=== PATIENT | female | born 1985 | race Caucasian/White ===

== ENCOUNTER 2023-10-21 18:37 | Inpatient (IN) | payer MEDICAID ==
[~2023-10-21] VITALS: Ht 162.6 cm; Wt 69.9 kg
[2023-10-21 18:57] VITALS: BP_SYST 138; PULSE 129; RESP 16; TEMP 98; O2SAT 100
[2023-10-21] MEDS: NACL 0.9% 1,000 ML IV ONE ×2 (18:57→20:30)
[2023-10-21] MEDS: LORazepam 2 MG/ML VIAL IVP ONE ×2 (18:57→20:36)
[2023-10-21] MEDS: ONDANSETRON HCL 4 MG/2 ML VIAL IVP ONE ×2 (18:58→20:19)
[2023-10-21] MEDS: levETIRAcetam 1,000 MG in NS 90 ML IV ONE (19:20)
[2023-10-21 19:32] LABS: BASOPHILS # (AUTO) 0.1 K/uL (0.0-0.2); EOSINOPHILS # (AUTO) 0.1 K/uL (0.0-0.4); EOSINOPHILS % (AUTO) 1.1 % (0.0-4.0); HEMATOCRIT 34.8 % (36-48); HEMOGLOBIN 11.9 g/dL (12.0-16.0); LYMPHOCYTES # (AUTO) 2.8 K/uL (1.0-5.5); LYMPHOCYTES % (AUTO) 28.5 % (20.5-51.5); MEAN CORPUSCULAR HEMOGLOBIN 31 pg (27-31); MEAN CORPUSCULAR HGB CONC 34 % (32-36); MEAN CORPUSCULAR VOLUME 90 fL (79.0-98.0); MONOCYTES # (AUTO) 0.9 K/uL (0.0-1.0); MONOCYTES % (AUTO) 9.7 % (1.7-9.3); NEUTROPHILS # (AUTO) 5.8 K/uL (1.8-7.7); NEUTROPHILS % (AUTO) 59.7 % (40.0-70.0); PLATELET COUNT (AUTO) 283 K/uL (130-430); RED BLOOD CELL COUNT(AUTO) 3.88 MIL/uL (4.2-6.2); RED CELL DISTRIBUTION WIDTH 13.7 % (9.0-15.0); WHITE BLOOD COUNT (AUTO) 9.7 K/uL (4.8-10.8)
[2023-10-21 19:56] LABS: ANION GAP 11 (5-15); CALCIUM 8.1 mg/dL (8.4-11.0); CARBON DIOXIDE 23 mmol/L (23-29); CHLORIDE 96 mmol/L (98-107); CREATININE 0.66 mg/dL (0.55-1.30); GFR AFRICAN AMERICAN 130 mL/min (>90); GLUCOSE 88 mg/dL (74-106); SODIUM SERUM 130 mmol/L (136-145); UREA NITROGEN, BLOOD 6 mg/dL (8-21)
[2023-10-21 19:59] LABS: GFR NON AFRICAN-AMERICAN 108 mL/min (>90)
[2023-10-21 20:00] LABS: POTASSIUM 2.8 mmol/L (3.5-5.1)
[2023-10-21] MEDS ORDERED: KCL 40 mEq in 100 mL (PREMIX) 100 ML IV ONE (20:00)
[2023-10-21] MEDS ORDERED: ONDANSETRON HCL 4 MG/2 ML VIAL ONE (20:11)
[2023-10-21] MEDS ORDERED: KCL 20 mEq in 100 mL (PREMIX) 200 ML IV ONE (20:20)
[2023-10-21] MEDS: KETOROLAC TROMETHAMINE 30 MG VIAL IVP ONE (20:35)
[2023-10-21] MEDS: KCL 20 mEq in 100 mL (PREMIX) 100 ML IV ONE ×2 (20:35→20:36)
[2023-10-21] MEDS: MORPHINE 2 MG/ML INJ. SYRINGE IVP ONE (21:00)
[2023-10-21 21:31] LABS: BILIRUBIN,URINE NEGATIVE (NEGATIVE); BLOOD, URINE NEGATIVE (NEGATIVE); CLARITY/URINE CLEAR (CLEAR); COLOR,URINE YELLOW (YELLOW); GLUCOSE,URINE NEGATIVE (NEGATIVE); KETONES,URINE NEGATIVE (NEGATIVE); LEUKOCYTE ESTERASE ,URINE NEGATIVE (NEGATIVE); NITRITE, URINE NEGATIVE (NEGATIVE); PROTEIN URINE NEGATIVE (NEGATIVE); UROBILINOGEN,URINE 0.2 (0.2-1.0)
[2023-10-21] MEDS ORDERED: ACETAMINOPHEN 325 MG TABLET PO PRN (21:45)
[2023-10-21] MEDS ORDERED: LORazepam 2 MG/ML VIAL IVP PRN (21:45)
[2023-10-21 21:59] LABS: INFLUENZA TYPE A Negative (NEGATIVE); INFLUENZA TYPE B NEGATIVE (NEGATIVE)
[2023-10-21] MEDS ORDERED: GALC120P SQ (22:26)
[2023-10-21] MEDS ORDERED: FOLI-43 PO (22:26)
[2023-10-21] MEDS ORDERED: [UNRECOGNIZED DRUG - CODE] PO (22:26)
[2023-10-21] MEDS ORDERED: [UNRECOGNIZED DRUG - CODE] PO (22:26)
[2023-10-21] MEDS ORDERED: METF-379 PO (22:26)
[2023-10-21] MEDS ORDERED: ARA20 PO (22:26)
[2023-10-21] MEDS ORDERED: FERR236T3 PO (22:26)
[2023-10-21] MEDS ORDERED: ESCI10TA PO (22:26)
[2023-10-21] MEDS: D5/0.45 NS 1,000 ML IV SCH (22:35)
[2023-10-21] MEDS: POTASSIUM CHLORIDE 20 MEQ/PKT PACKET PO ONE (22:35)
[2023-10-22] VITALS (7 sets, daily range): BP systolic 102–119; PULSE 75–90; RESP 16–18; TEMP 97.4–98; O2SAT 98–100
[2023-10-22 07:34] LABS: BASOPHILS % (AUTO) 0.3 % (0.0-2.0); EOSINOPHILS # (AUTO) 0.1 K/uL (0.0-0.4); EOSINOPHILS % (AUTO) 1.8 % (0.0-4.0); HEMATOCRIT 34.1 % (36-48); HEMOGLOBIN 11.3 g/dL (12.0-16.0); LYMPHOCYTES # (AUTO) 1.8 K/uL (1.0-5.5); LYMPHOCYTES % (AUTO) 33.5 % (20.5-51.5); MEAN CORPUSCULAR HEMOGLOBIN 30 pg (27-31); MEAN CORPUSCULAR HGB CONC 33 % (32-36); MEAN CORPUSCULAR VOLUME 91 fL (79.0-98.0); MONOCYTES # (AUTO) 0.5 K/uL (0.0-1.0); MONOCYTES % (AUTO) 9.8 % (1.7-9.3); NEUTROPHILS # (AUTO) 2.9 K/uL (1.8-7.7); NEUTROPHILS % (AUTO) 54.6 % (40.0-70.0); PLATELET COUNT (AUTO) 249 K/uL (130-430); RED BLOOD CELL COUNT(AUTO) 3.74 MIL/uL (4.2-6.2); RED CELL DISTRIBUTION WIDTH 13.7 % (9.0-15.0); WHITE BLOOD COUNT (AUTO) 5.4 K/uL (4.8-10.8)
[2023-10-22 07:48] LABS: ALBUMIN 2.8 g/dL (3.4-4.8); CREATININE 0.52 mg/dL (0.55-1.30); PHOSPHORUS 3.8 mg/dL (2.7-4.5); POTASSIUM 4.1 mmol/L (3.5-5.1); TOTAL BILIRUBIN 0.4 mg/dL (0.0-1.0); TOTAL PROTEIN, SERUM 5.1 g/dL (6.4-8.3)
[2023-10-22] MEDS ORDERED: NON-FORMULARY MEDICATION (Leflunomide (Arava) 20 MG) PO SCH (09:00)
[2023-10-22] MEDS ORDERED: ESCITALOPRAM OXALATE 10 MG TABLET PO SCH (09:00)
[2023-10-22] MEDS ORDERED: NON-FORMULARY MEDICATION (Ferrous Gluconate (Iron) 65 MG) PO SCH (09:00)
[2023-10-22] MEDS ORDERED: [UNRECOGNIZED DRUG - OTHER] PO SCH (09:00)
[2023-10-22] MEDS: MORPHINE 2 MG/ML INJ. SYRINGE IVP PRN (09:03)
[2023-10-22] MEDS ORDERED: ONDANSETRON HCL 4 MG/2 ML VIAL IVP PRN (09:45)
[2023-10-22] MEDS ORDERED: MORPHINE 2 MG/ML INJ. SYRINGE IVP PRN ×2 (09:45)
[2023-10-22] MEDS ORDERED: NALOXONE HCL 0.4 MG/ML AMP (NARCAN) IVP PRN ×2 (09:45)
[2023-10-22] MEDS ORDERED: POTASSIUM CHLORIDE 20 MEQ TABLET.ER PO PRN (09:45)
[2023-10-22] MEDS ORDERED: MAGNESIUM SULFATE 50 ML IV PRN (09:45)
[2023-10-22] MEDS ORDERED: MUPIROCIN 2% TOPICAL OINTMENT 22 GM NS PRN (09:45)
[2023-10-22] MEDS ORDERED: DOCUSATE SODIUM 100 MG CAPSULE PO PRN (09:45)
[2023-10-22] MEDS ORDERED: LORazepam 2 MG/ML VIAL IVP PRN (09:45)
[2023-10-22] MEDS ORDERED: ACETAMINOPHEN 500 MG TABLET PO PRN ×3 (13:00)
[2023-10-22] MEDS: FOLIC ACID 1 MG TABLET PO SCH (15:17)
[2023-10-22] MEDS: NACL 0.9% 1,000 ML IV SCH (15:19)
[2023-10-22] MEDS: HYDROcodone/ACETAMIN 5-325 MG TAB (NORCO/ VICODIN) PO PRN (16:56)
[2023-10-22] MEDS: levETIRAcetam 500 MG TABLET PO SCH (21:34)
[2023-10-23 00:01] VITALS: BP_SYST 117; PULSE 72; RESP 18; TEMP 97.2; O2SAT 98
[2023-10-23] MEDS: ZOLPIDEM TARTRATE 5 MG TABLET PO PRN (01:20)
[2023-10-23 07:31] LABS: BASOPHILS # (AUTO) 0.1 K/uL (0.0-0.2); BASOPHILS % (AUTO) 0.9 % (0.0-2.0); EOSINOPHILS # (AUTO) 0.1 K/uL (0.0-0.4); EOSINOPHILS % (AUTO) 1.8 % (0.0-4.0); HEMATOCRIT 37.5 % (36-48); HEMOGLOBIN 12.2 g/dL (12.0-16.0); LYMPHOCYTES # (AUTO) 2.1 K/uL (1.0-5.5); LYMPHOCYTES % (AUTO) 31.8 % (20.5-51.5); MEAN CORPUSCULAR HEMOGLOBIN 30 pg (27-31); MEAN CORPUSCULAR HGB CONC 32 % (32-36); MEAN CORPUSCULAR VOLUME 93 fL (79.0-98.0); MONOCYTES # (AUTO) 0.6 K/uL (0.0-1.0); MONOCYTES % (AUTO) 8.9 % (1.7-9.3); NEUTROPHILS # (AUTO) 3.7 K/uL (1.8-7.7); NEUTROPHILS % (AUTO) 56.6 % (40.0-70.0); PLATELET COUNT (AUTO) 265 K/uL (130-430); RED BLOOD CELL COUNT(AUTO) 4.06 MIL/uL (4.2-6.2); RED CELL DISTRIBUTION WIDTH 13.8 % (9.0-15.0); WHITE BLOOD COUNT (AUTO) 6.5 K/uL (4.8-10.8)
[2023-10-23 08:19] LABS: CALCIUM 8.2 mg/dL (8.4-11.0); CREATININE 0.56 mg/dL (0.55-1.30); POTASSIUM 3.5 mmol/L (3.5-5.1); TOTAL BILIRUBIN 0.3 mg/dL (0.0-1.0); TOTAL PROTEIN, SERUM 5.4 g/dL (6.4-8.3)
[2023-10-23] MEDS: TOPIRAMATE 25 MG TABLET(TOPAMAX) PO SCH (08:24)
[2023-10-23] MEDS: CITALOPRAM HYDROBROMIDE 20 MG TABLET PO SCH (08:24)
[2023-10-23] MEDS: [UNRECOGNIZED DRUG - OTHER] PO SCH (08:34)
[2023-10-23 08:50] VITALS: BP_SYST 116; PULSE 74; RESP 19; TEMP 97.4; O2SAT 96
[2023-10-23 10:50] VITALS: O2SAT 99
[2023-10-23 11:36] VITALS: BP_SYST 118; PULSE 82; RESP 18; TEMP 98; O2SAT 98
[2023-10-23] MEDS ORDERED: LEVE500T9 PO (12:19)
== END 2023-10-23 13:05 | disposition home or self-care (01) | DRG 53 ==
LOC: EDBD 18:37 → SED 18:37 → STU 21:36
PROVIDERS: ADMIT Student in an Organized Health Care Education/Training Program; ATTEND Student in an Organized Health Care Education/Training Program
PROC: 4A00X4Z Measurement of Central Nervous Electrical Activity, External Approach (ICD-10-PCS; principal; 2023-10-22)
DX: G40.409 Other generalized epilepsy and epileptic syndromes, not intractable, without status epilepticus (principal); E44.0 Moderate protein-calorie malnutrition; E87.1 Hypo-osmolality and hyponatremia; E87.6 Hypokalemia; Z20.822 Contact with and (suspected) exposure to COVID-19; M06.842 Other specified rheumatoid arthritis, left hand; M06.841 Other specified rheumatoid arthritis, right hand; G43.909 Migraine, unspecified, not intractable, without status migrainosus; Z79.899 Other long term (current) drug therapy; Z79.84 Long term (current) use of oral hypoglycemic drugs; Z68.26 Body mass index [BMI] 26.0-26.9, adult
CPT/HCPCS: 36415; 70450-TC; 71045; 72125-TC; 80048; 80053; 81001; 81003; 82948; 83037; 83735; 83880; 84100; 84484; 85025; 93005; 93306; 95816; 99285; G0378; J1885; J1953; J2060; J2270; J2405; J3480